=== PATIENT | female | born 1975 | race Caucasian/White ===

== ENCOUNTER 2017-01-25 08:51 | Day surgery (SDC) | payer OTHER ==
[~2017-01-25] VITALS: Ht 162.6 cm; Wt 66.8 kg
[~2017-01-25 08:51] MED LIST: ARIP10TA14 PO; CLOB15CR2 TP; CeFAZolin Inj 2 GM in IV Premix 1 EACH IV ONE; Dexamethasone 4 mg/mL Inj IVPUSH PRN; EPHEDrine Sulfate 50 mg/mL Inj IVPUSH PRN; ETAN50PE SQ; HYDROmorphone 1 mg/mL Inj IVPUSH PRN; KEN25CR EXT; Labetalol 5 mg/mL 4 mL Inj IV PRN; Lactated Ringer's 1,000 ML IV SCH; Lactated Ringer's 500 ML IV PRN; MetoCLOpramide 5 mg/mL 2 mL Inj IVPUSH PRN; Ondansetron 2 mg/mL 2 mL Inj IVPUSH PRN; Phenylephrine 10,000 mCg/mL Inj IVPUSH PRN; SERT100T PO; fentaNYL-PF 50 mCg/mL 2 mL Inj IVPUSH PRN; hydrALAZINE 20 mg/mL Inj IVPUSH PRN
[2017-01-25] MEDS ORDERED: Ketamine 10 mg/mL 20 mL Inj ONE (08:52)
[2017-01-25] MEDS ORDERED: Propofol 10,000 mCg/mL 20 mL Inj ONE (08:52)
[2017-01-25] MEDS: Lactated Ringer's 1,000 ML IV SCH ×2 (08:56→10:51)
[2017-01-25 09:24] VITALS: BP 105/57; PULSE 76; RESP 16; O2SAT 96
--- NOTE | 2017-01-25 10:43 | PCM.HPANE ---
Patient Data Date of Service: Jan 25, 2017 Surgeon Admitting Provider: Attending Provider:Jose Muhammad MD Primary Care Physician:Diallo Roberts MD Other Provider:Faith Tapia Anesthesia Reason for Visit Bilateral Torn Earlobes Ht/WT & BMI Height (Feet): 5 Height (Inches): 4 Weight (Kilograms): 66.8 Body Mass Index 25.00 Allergies Coded Allergies: No Known Allergies (Unverified , 10/15/15) Past Anesthesia History Anesthesia History: Denies:: Anesthesia Reactions, Fam Anesthesia Reaction, Fam Malignant Hypertherm Diabetes History Hx Diabetes?: No MRSA MRSA: No Medications Hypertension Medication: No Home Meds Incl Beta Jose: No Reported Medications Sertraline HCl (Zoloft)100 Mg Slgipt286 Mg PO DAILY 30 Days Ref 0 01/20/17 Triamcinolone Acet (Triamcinolone Acetonide Cream)1 Applic/0.25 Gm Cr1 Applic EXT BID #60 GM Ref 0 01/20/17 Etanercept (Enbrel)50 Mg/1 Ml Pen. Mg SQ WEEKLY 01/20/17 Clobetasol Propionate 15 Gm Cream..g.15 Gm TP BID 01/20/17 Aripiprazole (Abilify)10 Mg Rcqjgo72 Mg PO DAILY Ref 0 01/20/17 Discontinued Reported Medications Cyclosporine 100 Mg [id number] Mg PO DAILY 12/11/15 Sertraline HCl (Zoloft)100 Mg [id number] Mg PO DAILY 30 Days Ref 0 10/15/15 Etanercept (Enbrel)50 Mg/1 Ml Pen.tmxcde78 Mg SQ WEEKLY 10/15/15 Clobetasol Propionate/Emoll (Clobetasol Emollient 0.05% Crm)15 Gm Cream..g.1 Appl TOP BID #1 TUBE 10/15/15 Aripiprazole (Abilify)10 Mg Xenjea54 Mg PO DAILY Ref 0 10/15/15 History History of ENT Problems?: No HEENT History: Denies:: Hearing Problem 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[employer] Hx of Heart Problems?: No Cardiovascular History: Denies:: AICD Edema Heart Murmur Hypertension Irregular Heartbeat Pacemaker Peripheral Vascular Hx of Respiratory Problem?: No Respiratory History: Denies:: Asthma COPD Emphysema Oxygen Administration Pneumonia Tuberculosis Use of C-PAP Machine Hx Neurologic Problems?: No Neurological History: Denies:: CVA Dementia Headaches Multiple Sclerosis Parkinson's Disease Seizures Hx of GI Problems?: No Gastrointestinal History: Denies:: Gastroesphageal Reflux Heartburn Liver Disease Hx of Problems?: Yes Genitourinary History: Denies:: Urinary Tract Infection Female Hx: Denies:: Currently (hysterectomy) Problems with Breasts? Skin History: Positive for:: History Skin Disorders? (psoriasis- on biologic immune suppressant) Denies:: Pressure Ulcers Hx Musculoskeletal Problems?: Yes Musculoskeletal History: Positive for:: Back Injury (back pain) Musculoskeletal Trauma (hx osteonecrosis right shoulder) Hx of Psycho/Social Problems?: Yes Psycho Social History: Positive for:: Bipolar Disorder Hx Surgeries?: Yes (elbow, right forearm, wrist, knee, cysto-botox inj) Hx Any Other Health Problems?: Yes Other History: Denies:: Cancer Thyroid Disease Hx Diabetes: No Hx Alcohol Use: NoHx Substance Use: Yes (marijuana occasionally) Smoking Status: Former Smoker Have You Smoked inLast 12 mo: No Stop/Bang Treated for Sleep Apnea?: No Do You Have a CPAP Machine?: No S-Snoring: Do You Snore Loudly: No T-Tired: feel tired, fatigued: No O-Obsered: Observed not breath: No P-Blood Pressure: treated: No B- Body Mass Index > 35 kg/m2: No A- Age over 50: No N- Neck Large Circumference: No G- Gender Male: No BARBARA Total Score: 0 BARBARA Risk Assessment: Low Risk, <3 Yes Risk Assessment Category Category 1A: Patient has history of documented sleep apnea, and HAS NOT received any narcotic, sedative or anesthesia administration during this stay. Category 1B: Patient has history of documented sleep apnea, and HAS received any narcotic , sedative or anesthesia administration during this stay Category 2: Patient has SUSPECTED Obstructive Sleep Apnea, and HAS received any narcotic , sedative or anesthesia administration during this stay. Category 3: Patient has SUSPECTED Obstructive Sleep Apnea and HAS NOT received narcotic, sedative or anesthesia administration during this stay. Category 4: Outpatient in Procedural Areas with known sleep apnea or who screen positive for High Risk via the STOP/BANG questionnaire. Exam Exam Vital Signs Vital Signs Date Time Temp Pulse Resp B/P Pulse Ox O2 Delivery O2 Flow Rate FiO2 01/25/17 09:24 36.3 76 16 105/57 96 Room Air General Appearance: Alert, Oriented X3, Cooperative, No Acute Distress HEENT/AIRWAY: MP 2 Lungs: Clear to Auscultation, Normal Air Movement Heart: Exam Unremarkable, Regular Rate/Rhythm, No Murmurs/Rubs/Gallops Meds/Labs/Diagnostics Admission Meds Current Medications Lactated Ringer's (Lr) 1,000 ml @ 120 mls/hr Q8H20M IV Last administered on 08:56; Start 01/25/17 at 05:00; Stop 01/25/17 at 13:19 Lidocaine/ Epinephrine (Xylocaine 1%-Epinephrine 1:100,000 Inj) 20 ml STK-MED ONCE INFILTRATE Last administered on 01/25/17 10:34; Start 01/25/17 at 10:34; Stop 01/25/17 at 10:41; Status DC Plan Impression Patient chart reviewed, patient interviewed and anesthestic plan with risks, benefits, and alternatives discussed, and informed consent obtained. NPO Status: 01/24 ASA Physical Status: ASA2 Mod Systemic Disease Anesthetic Plan: MAC Bene/Risks/Altern/Consents: Yes HP Complete Prior to Induction: Yes Eric Cerda MD Jan 25, 2017 10:43
[2017-01-25] MEDS ORDERED: Lidocaine 1%-Epi 1:100,000 20 mL Inj INFILTRATE ONE (11:08)
[2017-01-25] MEDS ORDERED: Bacitracin Ointment Packet TOPICAL ONE (11:38)
[2017-01-25 11:51] VITALS: BP 106/58; PULSE 81; RESP 15; O2SAT 96
[2017-01-25 11:55] VITALS: BP 115/50; PULSE 78; RESP 14; O2SAT 96
[2017-01-25] MEDS ORDERED: HYDROcodone-APAP 5-325 mg Tablet PO PRN (11:55)
[2017-01-25 12:50] VITALS: BP 105/61; PULSE 72; RESP 16; O2SAT 97
--- NOTE | 2017-01-25 12:56 | OP ---
[address] [address] OPERATIVE REPORT PATIENT: CAMRON FINN : 1975 MR#: [id number] ADMIT: 01/25/2017 JOB ID: [id number] DATE OF SURGERY: 01/25/2017 PREOPERATIVE DIAGNOSIS(ES): Bilateral torn earlobes. POSTOPERATIVE DIAGNOSIS(ES): Bilateral torn earlobes. PROCEDURE: 1. Excision of left ear torn earlobe. Diameter excised 1 cm. 2. Layered closure of left ear defect. Total length of layered closure 2 cm (anterior-posterior). 3. Excision of left torn earlobe area. Excision diameter 1 cm. 4. Layered closure of left ear defect. Total length of layered closure 2 cm. SURGEON: Jose Muhammad MD ANESTHESIA: MAC with local. COMPLICATIONS: None apparent. VAUDEVILLE ACTOR: None. ESTIMATED BLOOD LOSS: Minimal. SPECIMEN: None. INDICATIONS FOR PROCEDURE: This is a 41-year-old female patient with history of trauma to bilateral ears at the site of the earring causing enlargement of the earring holes. The patient has recurrent irritation and infection from the earrings due to the size of these holes. At this point excision of the torn earring holes with repair is indicated. PROCEDURES AND FINDINGS: The patient was identified in the preoperative area. Surgical site was marked. The patient was then taken back to the operating room and placed supine on the operating table. Appropriate time-outs were taken. MAC was induced smoothly. The patient was then prepped and draped in the usual sterile manner. Local anesthesia was infiltrated to bilateral surgical sites with 1% lidocaine with epinephrine. I first turned my attention to the right ear. The surface of the torn earring hole was marked with a marker. The patient also has a cleft superiorly. This was also marked. An incision was then made around the anterior surface of the ear lobe along the cleft. I then coursed through the earring hole with a #11 blade. This allowed the cleft surface and the earring hole to be removed in its entirety. I then turned my attention to the posterior aspect where there was now a small circular defect from the coring. An ellipse was designed to encompass this defect. An incision was made around the ellipse with a #15 blade allowing the darts to be removed. There was minimal bleeding. The posterior defect was then reapproximated with a layer of 5-0 Prolene simple interrupted sutures. The total length of posterior repair was approximately 8 mm. I then turned my attention to the anterior surface. The substance of the earlobe was then reapproximated using several 5-0 Monocryl in simple interrupted sutures. The skin was then reapproximated using a 5-0 Prolene simple running suture. A small Burow's triangle was removed in this process to allow the ear to have a round contour. I then turned my attention to the left ear. Again, the defect on left ear was similar in size. A similar procedure was carried out on the left side. Again, the excision of the earring hole was 1 cm in diameter. Total length of layered closure was 2 cm on each side (4 cm total). The patient tolerated the procedure well. Needle count, sponge count, and instrument counts were correct at the end of the procedure. The patient was transported to recovery in stable condition.
--- NOTE | 2017-01-25 13:03 | PCM.ANEP1 ---
Post Anesthesia Phase 1 PACU Phase 1 Assessment Date of Service: Jan 25, 2017 Vital Signs Vital Signs Date Time Temp Pulse Resp B/P Pulse Ox O2 Delivery O2 Flow Rate FiO2 01/25/17 12:50 72 16 105/61 97 01/25/17 11:55 78 14 115/50 96 Room Air 01/25/17 11:51 36.3 81 15 106/58 96 Room Air 01/25/17 09:24 36.3 76 16 105/57 96 Room Air Anesthetic Administered: MAC Level of Alertness: Awake, talking DALEY's with Equal Strength: Yes Pain: No Nausea or Vomiting: No Lungs: Clear to Auscultation, Normal Air Movement Eric Cerda MD Jan 25, 2017 13:03
--- NOTE | 2017-01-25 13:03 | PCM.ANEP2 ---
Post Anesthesia Evaluation ASA/CMS Post Anesthesia VS in Patient's Normal Range?: Yes Resp Stable; Airway Patent?: Yes CV Function & Hydration Stable: Yes Mental Status Recovered?: Yes Pain control Satisfactory?: Yes N/V Control Satisfactory?: Yes Eric Cerda MD Jan 25, 2017 13:03
== END 2017-01-25 23:59 | disposition home or self-care (01) ==
LOC: SAS 08:51
PROVIDERS: ATTEND Plastic Surgery
DX: H61.893 Other specified disorders of external ear, bilateral (principal); S01.31 Laceration without foreign body of ear; S01.311S Laceration without foreign body of right ear, sequela; W45.8XXS Other foreign body or object entering through skin, sequela; F31.10 Bipolar disorder, current episode manic without psychotic features, unspecified; L40.50 Arthropathic psoriasis, unspecified
CPT/HCPCS: 11441; 12052; J0690; J7120